=== PATIENT | male | born 1955 | race Caucasian/White ===

== ENCOUNTER 2017-04-11 13:38 | Emergency (ER) | payer MEDICARE, MEDICAID ==
[2016-08-17 15:12] VITALS: BMI 22.4
[~2017-04-11 13:38] MED LIST: ATIVAN0.5 MG PO; ATROVENT 0.02%2.5 ML UPD; BACLOFEN10 MG PO; BROVANA15 MCG/2 M INH; BYSTOLIC2.5 MG PO; CARAFATE1 G PO; COREG 3.1253.125 MG PO; CYCLOBENZAPRINE10 MG PO; DALIRESP500 MCG PO; DULCOLAX5 MG PO; FLORASTOR250 MG PO; GABAPENTIN100 MG PO; GAS-X80 MG PO; LANOXIN250 MCG PO; LASIX20 MG PO; LASIX40 MG PO; LEVAQUIN500 MG PO; LIPITOR10 MG PO; LISINOPRIL5 MG PO; MEDROL DOSE PACK4 MG PO; MELATONIN 3 MG1 TAB PO; MUCINEX600 MG PO; MUCUS RELIEF400 MG PO; MULTI-DAY VITAM1 TAB PO; PEPCID40 MG PO; PERFOROMIS20 MCG/21 INH; PREDNISONE20 MG PO; PREPARATION H S48 EA RC; PROTONIX40 MG PO; PULMICORT0.5 MG/21 INH; RYTHMOL225 MG PO; SINGULAIR10 MG PO; TESSALON PERLE100 MG PO; VENTOLIN HFA18 GM INH; ZITHROMAX250 MG PO; ZOCOR20 MG PO
[2017-04-11 14:52] LABS: ALBUMIN 3.6 g/dL (3.4-5.0); ALKALINE PHOSPHATASE 78 U/L (46-116); ALT (SGPT) 24 U/L (10-68); BILIRUBIN - TOTAL 0.39 mg/dL (0.2-1.3); CALC OSMOLALITY 274 mosm/kg (275-300); CALCIUM 8.8 mg/dL (8.5-10.1); CARBON DIOXIDE 37.4 mmol/L (21.0-32.0); CHLORIDE - SERUM 95 mmol/L (98-107); GLUCOSE 130 mg/dL (74-106); POTASSIUM - SERUM 4.5 mmol/L (3.5-5.1); PROTEIN - SERUM 6.3 g/dL (6.4-8.2); SODIUM 136 mmol/L (136-145); UREA NITROGEN 14 mg/dL (7-18); eGFR NON AFRICAN AMERICAN 81 mL/min (90-120)
[2017-04-11 15:00] LABS: CREATINE KINASE 48 UL (21-232); PRO BNP 1254 pg/mL (0-125)
[2017-04-11 15:01] LABS: TROPONIN-I < 0.017 ng/mL (0.000-0.060)
[2017-04-11 15:28] LABS: HEMATOCRIT 41.9 % (42.0-54.0); HEMOGLOBIN 14.3 g/dL (13.5-17.5); LYMPHOCYTES 12.6 % (15-50); MCHC 34.1 g/dL (31.0-37.0); MCV 93.7 fL (80.0-100.0); MEAN PLATELET VOLUME 10.5 fL (7.4-10.4); NEUTROPHILS 76.2 % (40-80); PLATELET COUNT 172 10x3/uL (130-400); RBC 4.47 10x6/uL (4.20-6.10); RDW 13.4 % (11.5-14.5); WBC 10.5 10x3/uL (4.8-10.8)
== END 2017-04-11 18:23 | disposition home or self-care (01) ==
LOC: D.ER 13:38
PROVIDERS: Emergency Medicine
DX: I47.1 Supraventricular tachycardia (principal); J44.1 Chronic obstructive pulmonary disease with (acute) exacerbation; Z87.891 Personal history of nicotine dependence; R94.31 Abnormal electrocardiogram [ECG] [EKG]

== ENCOUNTER 2018-07-18 10:26 | Emergency (ER) | payer MEDICARE, MEDICAID ==
[~2018-07-18] VITALS: Ht 175.3 cm; Wt 72.7 kg
[2018-07-18 10:28] VITALS: Ht 175.3 cm; Wt 72.7 kg
[2018-07-18] MEDS ORDERED: BENTYL 20 MG TA20 MG PO (13:15)
[2018-07-18] MEDS ORDERED: MIRALAX17 GM PO (13:15)
[2018-07-18] MEDS ORDERED: ROBAXIN500 MG PO (13:20)
[2018-07-18 15:11] VITALS: BP 141/87
== END 2018-07-18 15:12 | disposition home or self-care (01) ==
LOC: D.ER 10:26
DX: K59.00 Constipation, unspecified (principal); R14.0 Abdominal distension (gaseous); M62.838 Other muscle spasm; I11.0 Hypertensive heart disease with heart failure; I50.9 Heart failure, unspecified; J44.9 Chronic obstructive pulmonary disease, unspecified

== ENCOUNTER 2018-11-26 15:34 | Inpatient (IN) | payer MEDICARE, MEDICAID ==
[~2018-11-26] VITALS: Ht 175.3 cm; Wt 60.0 kg
[~2018-11-26 15:34] MED LIST changes: -ATIVAN0.5 MG PO; +ATIVAN1 MG PO; +BENTYL 20 MG TA20 MG PO; -GAS-X80 MG PO; +LANOXIN125 MCG PO; +MIRALAX17 GM PO; +MUCUS RELIEF PO; -MUCUS RELIEF400 MG PO; +MYLICON PO; +PROTONIX20 MG PO; -PROTONIX40 MG PO; +ROBAXIN500 MG PO
[2018-11-26 16:36] LABS: BASOPHILS 0.1 % (0-2); EOSINOPHILS 0.1 % (0-7); HEMATOCRIT 41.2 % (42.0-54.0); IMMATURE GRANULOCYTES 0.6 % (0-5); LYMPHOCYTES 4.5 % (15-50); MCH 30.7 pg (26.0-34.0); MCHC 31.6 g/dL (31.0-37.0); MCV 97.2 fL (80.0-100.0); MEAN PLATELET VOLUME 9.7 fL (7.4-10.4); MONOCYTES 1.9 % (2-11); NEUTROPHILS 92.8 % (40-80); PLATELET COUNT 281 10x3/uL (130-400); RBC 4.24 10x6/uL (4.20-6.10); RDW 12.7 % (11.5-14.5); WBC 19.7 10x3/uL (4.8-10.8)
--- NOTE | 2018-11-26 17:00 | NUR ---
PATIENT GIVEN A WARM BLANKET AND HOB ADJUSTED FOR COMFORT. HE IS AWAKE AND ALERT. COLOR IS WNL. HE IS ON BIPAP. NO OTHER NEEDS NOTED. UPDATED ON PLAN OF CARE AND DELAYS IN CARE. WILL CONTINUE TO MONITOR.
[2018-11-26 17:16] LABS: ALBUMIN 3.1 g/dL (3.4-5.0); ALKALINE PHOSPHATASE 117 U/L (46-116); ALT (SGPT) 28 U/L (10-68); BILIRUBIN - TOTAL 0.29 mg/dL (0.2-1.3); CALC OSMOLALITY 269 mosm/kg (275-300); CALCIUM 8.9 mg/dL (8.5-10.1); CHLORIDE - SERUM 90 mmol/L (98-107); CKMB 1.1 U/L (0.0-3.6); CREATININE - SERUM 0.8 mg/dL (0.6-1.3); GLUCOSE 129 mg/dL (74-106); PRO BNP 732 pg/mL (0-125); PROTEIN - SERUM 6.5 g/dL (6.4-8.2); SODIUM 133 mmol/L (136-145); TROPONIN-I < 0.017 ng/mL (0.000-0.060); UREA NITROGEN 18 mg/dL (7-18); eGFR NON AFRICAN AMERICAN > 90 mL/min (90-120)
[2018-11-26 17:45] LABS: CARBON DIOXIDE 43.8 mmol/L (21.0-32.0); POTASSIUM - SERUM 6.2 mmol/L (3.5-5.1)
[2018-11-26 18:25] VITALS: BP 108/56
--- NOTE | 2018-11-26 18:42 | NUR ---
PATIENT AWAKE AND ALERT. ON BIPAP. FAMILY AT BEDSIDE. COLOR WNL FOR RACE. NO NEEDS NOTED. WILL CONTINUE TO MONITOR.
[2018-11-26 20:00] VITALS: BP 97/41
--- NOTE | 2018-11-26 21:32 | NUR ---
ADMIT TO ROOM 2124 FROM ER VIA STRETCHER. ACCOMPANIED BY SPOUSE. SETTLED INTO ROOM. ADMISSION HISTORY AND ASSESSMENT INITIATED. HOME MEDS REVIEWED. PLAN OF CARE INITIATED. RT IN ROOM AND PT IS ON BIPAP.
[2018-11-26 23:50] VITALS: BP 98/61
--- NOTE | 2018-11-27 02:14 | NUR ---
I have reviewed this patient and I concur with the Shift Assessment completed by the Licensed Practical Nurse today this shift.
[2018-11-27 03:45] VITALS: BP 100/62
--- NOTE | 2018-11-27 04:41 | NUR ---
PT WILL NOT KEEP HIS BIPAP ON. HE HAS STRIPPED IT OFF, TAKEN OFF HIS CLOTHES AND WAS WALKING AROUND ROOM YELLING "HELP ME". STAFF RESITUATED PT AND WITHIN A SHORT PERIOD OF TIME, HE RESUMMED YELLING OUT. STAFF ENTERED ROOM AND FOUND HIM SITTING ON SIDE OF BED WITH BIPAP OFF, REFUSING TO PUT IT BACK ON. PATIENT SAYING THE BUILDING HAS NOTHING BUT PEOPLE IN IT AND THE APOCALYPSE IS HAPPENING NOW. CALL TO RT WHO WILL COME UP AND ASSESS PATIENT AND TRY TO CONVINCE PATIENT TO WEAR HIS BIPAP. RT X 2 NOW IN ROOM.
--- NOTE | 2018-11-27 05:12 | NUR ---
PT AGITATED, RT GOT HIM TO PUT HIS BIPAP BACK ON. HE REFUSED ALL SCHEDULED MEDS AT THIS TIME. LAYING IN BED. WILL MONITOR.
[2018-11-27 06:29] LABS: BASOPHILS 0 % (0-2); EOSINOPHILS 0 % (0-7); HEMATOCRIT 37.8 % (42.0-54.0); IMMATURE GRANULOCYTES 0.3 % (0-5); LYMPHOCYTES 2.4 % (15-50); MCH 30.6 pg (26.0-34.0); MCHC 31.7 g/dL (31.0-37.0); MCV 96.4 fL (80.0-100.0); MEAN PLATELET VOLUME 9.7 fL (7.4-10.4); NEUTROPHILS 95.3 % (40-80); PLATELET COUNT 263 10x3/uL (130-400); RBC 3.92 10x6/uL (4.20-6.10); RDW 12.6 % (11.5-14.5)
[2018-11-27 07:06] LABS: ALBUMIN 2.6 g/dL (3.4-5.0); ALKALINE PHOSPHATASE 99 U/L (46-116); ALT (SGPT) 22 U/L (10-68); BILIRUBIN - TOTAL 0.23 mg/dL (0.2-1.3); CALC OSMOLALITY 271 mosm/kg (275-300); CALCIUM 9.4 mg/dL (8.5-10.1); CHLORIDE - SERUM 91 mmol/L (98-107); CKMB 0.5 U/L (0.0-3.6); CREATINE KINASE 20 UL (21-232); CREATININE - SERUM 0.8 mg/dL (0.6-1.3); GLUCOSE 158 mg/dL (74-106); POTASSIUM - SERUM 5.9 mmol/L (3.5-5.1); PROTEIN - SERUM 6.5 g/dL (6.4-8.2); SODIUM 133 mmol/L (136-145); TROPONIN-I < 0.017 ng/mL (0.000-0.060); UREA NITROGEN 22 mg/dL (7-18); eGFR NON AFRICAN AMERICAN > 90 mL/min (90-120)
--- NOTE | 2018-11-27 07:15 | NUR ---
PATIENT LAYING IN BED ON RTSIDE WITH EYES CLOSED AND BREATHING EVENLY. BIPAP IN PLACE. VSS. WILL CONTINUE WITH PLAN OF CARE. SR UP X 2 BED IN LOW POSITION AND CALL LIGHT IN REACH.
[2018-11-27 07:57] VITALS: BP 100/62; BMI 21.7
[2018-11-27 08:03] VITALS: BP 95/48
[2018-11-27 08:05] LABS: CARBON DIOXIDE 42.5 mmol/L (21.0-32.0)
[2018-11-27 12:01] VITALS: BP 98/33
[2018-11-27 12:26] VITALS: Ht 175.3 cm; Wt 60.0 kg
[2018-11-27] MEDS ORDERED: FLUTICASONE PRO16 GM NASAL (15:06)
[2018-11-27] MEDS ORDERED: ALBUTEROL2.5 MG/3 M INH ×2 (15:07→15:08)
[2018-11-27] MEDS ORDERED: BUSPAR10 MG PO (15:09)
[2018-11-27] MEDS ORDERED: ALDACTONE25 MG PO (15:10)
[2018-11-27] MEDS ORDERED: PREDNISONE20 MG PO (15:11)
[2018-11-27] MEDS ORDERED: POTASSIUM CHLO10 ME1 PO (15:11)
[2018-11-27] MEDS ORDERED: ZANAFLEX2 M1 PO (15:14)
[2018-11-27] MEDS ORDERED: ULTRAM50 MG PO (15:16)
[2018-11-27] MEDS ORDERED: ACETAMINOPHEN325 MG PO (15:17)
[2018-11-27] MEDS ORDERED: CARAFATE1 G/10 ML PO (15:17)
[2018-11-27] MEDS ORDERED: ZOFRAN4 MG PO (15:18)
[2018-11-27] MEDS ORDERED: MYLANTA PO (15:20)
[2018-11-27] MEDS ORDERED: ANUSOL SUPP1 SUPP RC (15:23)
--- NOTE | 2018-11-27 15:30 | NUR ---
PATIENT LAYING IN BED WATCHING TV. BIPAP IN PLACE. PATIENT IS STABLE UNCHANGED. PATIENT DENIES ANY NEEDS OR PAIN. WILL CONTINUE TO MONITOR, SR UP X 2 BED IN LOW POSTION AND CALL LIGHT REACH.
[2018-11-27 15:40] VITALS: BP 92/54
--- NOTE | 2018-11-27 16:11 | MORECARE ---
CASE MANAGEMENT DISCHARGE SUMMARY PATIENT: TACHO WHITT UNIT: [id number] ADM DATE: 11/26/18 AGE: 63 : 57 SEX: M ROOM/BED: D.2124 AUTHOR: ANNELIESE,DOC PHYSICIAN: REFERRING PHYSICIAN: JOSE CARLOS SAM MD DATE OF SERVICE: 11/27/18 Discharge Plan Patient Name: TACHO WHITT Facility: [facility]:[place] : 1955 Planned Disposition: Nursing Facility [facility] Cert Anticipated Discharge Date: Discharge Date: Expected LOS: Initial Reviewer: [id number] Initial Review Date: 11/27/2018 Generated: 11/27/18 5:11 pm DCPIA - Discharge Planning Initial Assessment Updated by [email or web address]: Rufino Lopez on 11/27/18 4:10 pm * Is the patient Alert and Oriented? Yes * How many steps to enter\exit or inside your home? NONE * PCP DR. MEDINA * [facility] * Preadmission Environment [facility] * Facility Name [facility] * ADLs Partial Dependent * Partial ADLs (Assistance needed) Bathing Medication Management * Equipment CPAP Nebulizer Oxygen Wheelchair * Other Equipment HOME AND PORTABLE OXYGEN CPAP - PT NOT USING DUE TO IT BEING DIRTY ALL EQUIPMENT PROVIDED BY MEDICAL FACILITY * List name and contact numbers for known caregivers / representatives who currently or will assist patient after discharge: TOSHA WHITT, SPOUSE, * Verbal permission to speak to the caregivers and representatives has been obtained from the patient. N/A * Community resources currently utilized None * Please name any agencies selected above. NONE * Additional services required to return to the preadmission environment? No * Can the patient safely return to the preadmission environment? Yes * Has this patient been hospitalized within the prior 30 days at any hospital? No External Providers External Provider: [facility] Next Contact Date: 11/27/2018 Service Request Date: Service Type: Resolution: Reviewer: Comments: Coverage Notice Reviewer: [id number] Shaye Lopez Notice Issued Date-Time: 11/27/2018 14:45 Notice Type: Patient Choice Letter Notice Delivered To: Patient Relationship to Patient: Hiv Cts Specialist Name: Delivery Method: HAND - Hand Delivered Ct Days: Prior Verbal Notification: Recipient Understood Notice: Yes Recipient Signature: Yes Med Rec Note Co-signed by Attending: Coverage Notice Comment: LTC CAROL RETURN Patient Name: TACHO WHITT Page [id number] at 1611 All edits/amendments must be made on the electronic document DICTATION DATE: 11/27/18 161 DEMOLITION WORKER: LAURA 11/27/18 1610 RPT#: [id number] DC DATE: STATUS: ADM IN [facility] [address] [place] [address] END OF REPORT
--- NOTE | 2018-11-27 16:21 | MORECARE ---
CASE MANAGEMENT DISCHARGE SUMMARY PATIENT: TACHO WHITT UNIT: [id number] ADM DATE: 11/26/18 AGE: 63 : 57 SEX: M ROOM/BED: D.6709 AUTHOR: ANNELIESE,DOC PHYSICIAN: REFERRING PHYSICIAN: JOSE CARLOS SAM MD DATE OF SERVICE: 11/27/18 Discharge Plan Patient Name: TACHO WHITT Facility: [facility]:[place] : 1955 Planned Disposition: Nursing Facility [facility] Cert Anticipated Discharge Date: Discharge Date: Expected LOS: Initial Reviewer: [id number] Initial Review Date: 11/27/2018 Generated: 11/27/18 5:20 pm Comments DCP- Discharge Planning Updated by [id number]: Rufino Lopez on 11/27/18 3:[address] Patient Name: TACHO WHITT Encounter No: [id number] : 1955 Primary Insurance: [facility] MEDICARE HMO or PPO Anticipated DC Date: Planned Disposition: Nursing Facility [facility] Cert External Planned Provider: [facility], LONG TERM CARE MEDICAID BED DISCHARGE PLANNING NOTE: CM MET WITH PT IN ROOM TO DISCUSS DISCHARGE PLANNING AND NEEDS. PT REPORTS LIVING AT [facility] FOR THE LAST TWO YEARS. PT REPORTS FEELING SAFE AND WILL BE RETURNING THERE AT DISCHARGE. CHOICE LISTING PROVIDED, PT SIGNED CONSENT FOR [facility]. PT REPORTS BEING OUT OF BE AND IN WHEELCHAIR AT THE ASSISTED. PT REPORTS HAVING OXYGEN, NEBULIZER, WHEELCHAIR AND CPAP AT THE FACILITY. PT HAS NOT BEEN USING HIS CPAP DUE TO IT BEING DIRTY. CM SPOKE TO [facility], , WHO ADVISED THAT THEY MAY RETURN PT TO SKILLED BED DEPENDING ON IF HE HAS THREE MIDNIGHTS IN INPATIENT BED AND IF HE HAS REMAINING SKILLED DAYS REMAINING. PT IS CURRENTLY IN [facility] BED. CM FAXED UPDATE TO [facility] AT [phone]. FOR DISCHARGE, FAX DISCHARGE INFORMATION TO [facility] AT [phone]. NURSE REPORT TO BE CALLED TO [facility] AT [phone]. [facility] TO ARRANGE VAN TRANSPORT. [place] MANAGEMENT DCPIA - Discharge Planning Initial Assessment Updated by [id number]: Rufino Lopez on 11/27/18 4:10 pm * Is the patient Alert and Oriented? Yes * How many steps to enter\exit or inside your home? NONE * PCP DR. MEDINA * [facility] * Preadmission Environment [facility] * Facility Name [facility] * ADLs Partial Dependent * Partial ADLs (Assistance needed) Bathing Medication Management * Equipment CPAP Nebulizer Oxygen Wheelchair * Other Equipment HOME AND PORTABLE OXYGEN CPAP - PT NOT USING DUE TO IT BEING DIRTY ALL EQUIPMENT PROVIDED BY MEDICAL FACILITY * List name and contact numbers for known caregivers / representatives who currently or will assist patient after discharge: TOSHA WHITT, SPOUSE, * Verbal permission to speak to the caregivers and representatives has been obtained from the patient. N/A * Community resources currently utilized None * Please name any agencies selected above. NONE * Additional services required to return to the preadmission environment? No * Can the patient safely return to the preadmission environment? Yes * Has this patient been hospitalized within the prior 30 days at any hospital? No Coverage Notice Reviewer: [id number] - Rufino Lopez Notice Issued Date-Time: 11/27/2018 14:45 Notice Type: Patient Choice Letter Notice Delivered To: Patient Relationship to Patient: Supervisor Instrument Mechanics Name: Delivery Method: HAND - Hand Delivered Ct Days: Prior Verbal Notification: Recipient Understood Notice: Yes Recipient Signature: Yes Med Rec Note Co-signed by Attending: Coverage Notice Comment: [facility] RETURN Last DP export: 11/27/18 3:11 pm Patient Name: TACHO WHITT Page [phone] at 1621 All edits/amendments must be made on the electronic document DICTATION DATE: 11/27/18 162 ENDOSCOPY REGISTERED NURSE: LAURA 11/27/18 162 RPT#: [id number] DC DATE: STATUS: ADM IN [facility] [address] [place] [address] END OF REPORT
[2018-11-27 18:23] LABS: APPEARANCE CLEAR (CLEAR); BILIRUBIN NEGATIVE (NEGATIVE); COLOR YELLOW (YELLOW); GLUCOSE NEGATIVE (NEGATIVE); KETONE SMALL mg/dL (NEGATIVE); NITRITE NEGATIVE (NEGATIVE); PROTEIN NEGATIVE (NEGATIVE); UROBILINOGEN NORMAL (NORMAL)
--- NOTE | 2018-11-27 19:46 | NUR ---
RESUMED CARE OF PT, LYING IN BED RESPIRATIONS EVEN AND UNLABORED ON BIPAP. LEFT WRIST SALINE LOCKED. CALL LIGHT IN REACH. SEE NURSE ASSESSMENT.
[2018-11-27 20:00] VITALS: BP 112/57
[2018-11-28] VITALS: BP 103/61; BP 67/58
[2018-11-28 04:00] VITALS: BP 126/70
[2018-11-28 06:00] LABS: BASOPHILS 0 % (0-2); EOSINOPHILS 0 % (0-7); HEMATOCRIT 37.4 % (42.0-54.0); HEMOGLOBIN 12.2 g/dL (13.5-17.5); IMMATURE GRANULOCYTES 0.4 % (0-5); LYMPHOCYTES 3.5 % (15-50); MCH 30.3 pg (26.0-34.0); MCHC 32.6 g/dL (31.0-37.0); MEAN PLATELET VOLUME 9.9 fL (7.4-10.4); MONOCYTES 2.2 % (2-11); NEUTROPHILS 93.9 % (40-80); PLATELET COUNT 285 10x3/uL (130-400); RBC 4.02 10x6/uL (4.20-6.10); RDW 12.5 % (11.5-14.5); WBC 16.7 10x3/uL (4.8-10.8)
[2018-11-28 06:14] LABS: CALC OSMOLALITY 277 mosm/kg (275-300); CALCIUM 9.1 mg/dL (8.5-10.1); CHLORIDE - SERUM 90 mmol/L (98-107); CREATININE - SERUM 0.9 mg/dL (0.6-1.3); GLUCOSE 174 mg/dL (74-106); SODIUM 135 mmol/L (136-145); UREA NITROGEN 24 mg/dL (7-18); eGFR NON AFRICAN AMERICAN > 90 mL/min (90-120)
[2018-11-28 06:54] LABS: POTASSIUM - SERUM 3.6 mmol/L (3.5-5.1)
[2018-11-28 06:56] LABS: CARBON DIOXIDE 40.5 mmol/L (21.0-32.0)
--- NOTE | 2018-11-28 07:00 | NUR ---
PT IN BED, WEARING BIPAP AT THIS TIME. SWIMMING COACH OR INSTRUCTOR AT BEDSIDE CLEANING PT'S ROOM. RT WRIST IV SL. CALL LIGHT IN REACH, NAD NOTED, WILL CONTINUE PLAN OF CARE.
--- NOTE | 2018-11-28 09:28 | NUR ---
PLACED PT BACK ON BIPAP, PT STATES THAT SOMETHING WAS WRONG WITH HIS BIPAP BECAUSE HE WAS NOT GETTING ANY AIR FROM IT. CHECKED BIPAP AND NOTHING WRONG WITH IT. PT DENIES ANY OTHER NEEDS AT THIS TIME. CALL LIGHT IN REACH, NAD NOTED, WILL CONTINUE TO MONITOR.
[2018-11-28 09:57] VITALS: BP 135/65
--- NOTE | 2018-11-28 14:19 | NUR ---
PT RESTING COMFORTABLY, USING BIPAP. DENIES ANY NEEDS AT THIS TIME. CALL LIGHT IN REACH, NAD NOTED, WILL CONTINUE TO MONITOR.
--- NOTE | 2018-11-28 16:42 | NUR ---
PT SCREAMING OUT HELP, WENT TO SEE WHAT PT NEEDED, PT WANTS TO COME OFF BIPAP. TOOK PT OFF BIPAP AND PLACED ON 4L NC. PT DENIES ANY OTHER NEEDS AT THIS TIME. CALL LIGHT IN REACH, HERBIE NOTED.
[2018-11-28 18:48] VITALS: BP 130/78
--- NOTE | 2018-11-28 19:34 | NUR ---
PT LAYING ON RIGHT SIDE. AROUSES TO NURSE ENTERING ROOM. PT HAS DINNER TRAY AT BEDSIDE. DECLINES NURSE HEATING IT UP OR TAKING IT AWAY. TOLD PT TO CALL IF NEED IT HEATED. PT VERBALIZED UNDERSTANDING. PT SET UP ON SIDE OF BED WITHOUT ASSIST FOR DYSPNEA. 4L O2 NC. BIPAP AT BEDSIDE ON STANDBYE. PT STATES LIPS ARE DRY. WILL GET PT MOUTH MOISTURIZER. PT DENIES ANY OTHER NEEDS. NO S/S OF DISTRESS. BEDLOW AND CALL LIGHT IN REACH. NAME AND DATE PLACED ON BOARD. WILL CPOC
[2018-11-28 20:00] VITALS: BP 128/79
--- NOTE | 2018-11-28 20:10 | NUR ---
PT HEARTRATE [address] LOERA NOW
--- NOTE | 2018-11-28 20:34 | NUR ---
PAGED FELIPA JACKSON. STILL NO CALL BACK FROM
--- NOTE | 2018-11-28 21:14 | NUR ---
SPOKE WITH DR LOERA. STATED TO RESTART HOME MEDS. PLACED TELEMETRY ON PT AND RESTARTED HOME MEDS. SHE STATED TO GIVE DOSE OF DIGOXIN AND COREG TONIGHT. PLACED MEDICATIONS INTO EMAR
--- NOTE | 2018-11-29 01:43 | NUR ---
FLUSHED IV AND S/L RETAPED AND TOOK OFF DRSG SKIN TEAR UNDER DRSG. NOT OPEN, SCAB OVER IT. PT LAYING ON RIGHT SIDE. 4L O2 NC. PT BEDLOW AND CALL LIGHT IN REACH. PT WILL CALL FOR ASSIST WHEN NEEDED. WILL CPOC
[2018-11-29 04:00] VITALS: BP 83/53
--- NOTE | 2018-11-29 04:56 | NUR ---
PT ZOSYN STARTED. PT INDEPENDENT. CAN MOVE WITHOUT ASSIST. 4L O2 NC. PT DID NOT WEAR BIPAP THROUGHOUT NIGHT. PT HAS NO S/S OF DISTRESS. BEDLOW AND CALL LIGHT INREACH. WILL CPOC
[2018-11-29 06:18] LABS: BASOPHILS 0.1 % (0-2); EOSINOPHILS 0 % (0-7); HEMATOCRIT 37.1 % (42.0-54.0); HEMOGLOBIN 12.2 g/dL (13.5-17.5); IMMATURE GRANULOCYTES 0.7 % (0-5); MCH 30.3 pg (26.0-34.0); MCHC 32.9 g/dL (31.0-37.0); MCV 92.3 fL (80.0-100.0); NEUTROPHILS 91.2 % (40-80); PLATELET COUNT 296 10x3/uL (130-400); RBC 4.02 10x6/uL (4.20-6.10); RDW 12.8 % (11.5-14.5); WBC 16.9 10x3/uL (4.8-10.8)
--- NOTE | 2018-11-29 06:21 | NUR ---
PT RESTING IN BED. PT WILL CALL FOR ASSIST WHEN NEEDED. PT HAS NO S/S OF DISTRESS. BEDLOW AND CALL LIGHT IN REACH. 4L 02 NC. WILL CPOC
[2018-11-29 06:30] LABS: CALCIUM 8.7 mg/dL (8.5-10.1)
[2018-11-29 06:32] LABS: CREATININE - SERUM 1.2 mg/dL (0.6-1.3)
--- NOTE | 2018-11-29 08:05 | NUR ---
CALLED PHARMACY AND ASKED FOR THEM TO BRING BUSPAR AND THEY STATED THEY WOULD.
[2018-11-29 09:34] VITALS: BP 91/47
--- NOTE | 2018-11-29 09:34 | NUR ---
CALLED AND SPOKE WITH PHARMACY AND ASKED FOR THEM TO PLEASE BRING BUSPAR. THEY STATED THEY WILL BRING IT.
--- NOTE | 2018-11-29 10:43 | NUR ---
SPOKE WITH [employer] ABOUT MENDOZA. HE STATES HE WILL GO DOWN AND LOOK AND BRING IT UP.
[2018-11-29 12:13] VITALS: BP 90/54
--- NOTE | 2018-11-29 12:30 | NUR ---
CALLED AND SPOKE WITH DEEP FROM PHARMACY ABOUT BRINGING BUSPAR AND HE STATES HE WILL GET IT.
--- NOTE | 2018-11-29 15:07 | NUR ---
I have reviewed this patient and I concur with the Shift Assessment completed by the Licensed Practical Nurse today this shift.
[2018-11-29 17:06] VITALS: BP 98/51
[2018-11-29 20:00] VITALS: BP 97/59
--- NOTE | 2018-11-29 21:08 | NUR ---
HS MEDS GIVEN WITH FRESH ICE WATER. PT DENIES PAIN OR NEEDS, BED LOW, CL IN REACH.
[2018-11-30] VITALS: BP 98/60
[2018-11-30 04:00] VITALS: BP 97/58
[2018-11-30 06:20] LABS: ANION GAP 13.5 mmol/L (8-16); CALCIUM 8.8 mg/dL (8.5-10.1); CARBON DIOXIDE 29.7 mmol/L (21.0-32.0); CREATININE - SERUM 1.3 mg/dL (0.6-1.3)
[2018-11-30 06:26] LABS: BASOPHILS 0.2 % (0-2); EOSINOPHILS 0 % (0-7); HEMATOCRIT 34.4 % (42.0-54.0); HEMOGLOBIN 11.5 g/dL (13.5-17.5); IMMATURE GRANULOCYTES 0.8 % (0-5); LYMPHOCYTES 4.6 % (15-50); MCH 30.4 pg (26.0-34.0); MCHC 33.4 g/dL (31.0-37.0); MEAN PLATELET VOLUME 9.9 fL (7.4-10.4); MONOCYTES 2.6 % (2-11); NEUTROPHILS 91.8 % (40-80); PLATELET COUNT 269 10x3/uL (130-400); RBC 3.78 10x6/uL (4.20-6.10); RDW 12.7 % (11.5-14.5)
[2018-11-30 06:40] LABS: WBC 12.6 10x3/uL (4.8-10.8)
[2018-11-30 06:45] LABS: POTASSIUM - SERUM 4.2 mmol/L (3.5-5.1)
--- NOTE | 2018-11-30 07:45 | NUR ---
PT LYING IN BED. EYES CLOSED. CHEST RISING AND FALLING. BED LOW. CL IN REACH.
[2018-11-30 08:03] VITALS: BP 125/59
[2018-11-30 11:53] VITALS: BP 121/65
--- NOTE | 2018-11-30 14:49 | NUR ---
I have reviewed this patient and I concur with the Shift Assessment completed by the Licensed Practical Nurse today this shift.
[2018-11-30 16:01] VITALS: BP 128/61
--- NOTE | 2018-11-30 19:05 | NUR ---
PT WANTING SOMETHING FOR HEADACHE. PAGED FELIPA OJEDA.
--- NOTE | 2018-11-30 19:20 | NUR ---
ANSWERED CL. PT C/O OF SOB, ASKING FOR UPDRAFT. CALL OUT TO RT, SPOKE WITH BUNNY. BUNNY AT BED SIDE ADMINISTERING UPDRAFT.
[2018-11-30 20:00] VITALS: BP 90/50
[2018-12-01] VITALS (7 sets, daily range): BP systolic 82–136; BP diastolic 43–68
--- NOTE | 2018-12-01 01:34 | NUR ---
RT AT BED SIDE, PT PLACED ON BI PAP.
[2018-12-01 06:08] LABS: BASOPHILS 0.1 % (0-2); EOSINOPHILS 0 % (0-7); HEMOGLOBIN 12.4 g/dL (13.5-17.5); IMMATURE GRANULOCYTES 1.8 % (0-5); LYMPHOCYTES 4.1 % (15-50); MCHC 33.5 g/dL (31.0-37.0); MCV 89.6 fL (80.0-100.0); MONOCYTES 2.9 % (2-11); NEUTROPHILS 91.1 % (40-80); PLATELET COUNT 274 10x3/uL (130-400); RBC 4.13 10x6/uL (4.20-6.10); RDW 12.6 % (11.5-14.5); WBC 15.5 10x3/uL (4.8-10.8)
[2018-12-01 06:18] LABS: ANION GAP 9.6 mmol/L (8-16); CALCIUM 8.7 mg/dL (8.5-10.1); CARBON DIOXIDE 31.9 mmol/L (21.0-32.0); CREATININE - SERUM 1.1 mg/dL (0.6-1.3)
[2018-12-01 06:20] LABS: POTASSIUM - SERUM 3.5 mmol/L (3.5-5.1)
--- NOTE | 2018-12-01 07:21 | NUR ---
REPORT RECEIVED. WILL CONTINUE WITH POC. PT CURRENTLY LYING ON RIGHT SIDE. CALL LIGHT W/I REACH. PT IS AAO AND UP WITH ASSIST. RR EVEN AND UNLABORED ON 3L 02. R.FOR PIV IS SALINE LOCKED. PT DENIES ANY NEEDS AT THIS TIME. NO S/S OF DISTRESS NOTED. WILL CTM.
--- NOTE | 2018-12-01 09:55 | MORECARE ---
CASE MANAGEMENT DISCHARGE SUMMARY PATIENT: TACHO WHITT UNIT: [id number] ADM DATE: 11/26/18 AGE: 63 : 57 SEX: M ROOM/BED: D.5094 AUTHOR: TENZIN COY PHYSICIAN: REFERRING PHYSICIAN: JOSE CARLOS SAM MD DATE OF SERVICE: 12/01/18 Discharge Plan Patient Name: TACHO WHITT Facility: [facility]:[place] : 1955 Planned Disposition: Nursing Facility [facility] Cert Anticipated Discharge Date: Discharge Date: Expected LOS: Initial Reviewer: [id number] Initial Review Date: 11/27/2018 Generated: 12/01/18 10:55 am Comments DCP- Discharge Planning Updated by [id number]: Rufino Lopez on 12/01/18 8:[address] Patient Name: TACHO WHITT Encounter No: [id number] : 1955 Primary Insurance: [facility] MEDICARE HMO or PPO Anticipated DC Date: Planned Disposition: Nursing Facility [facility] Cert External Planned Provider:[facility], MEDICARE SKILLED BED DISCHARGE PLANNING NOTE: CM SPOKE TO [facility], , WHO ADVISED THAT THEY PLAN FOR PT TO RETURN TO SKILLED BED. PT IS CURRENTLY IN [facility] SH[facility]ING COVERER [facility]ARE BED. CM FAXED UPDATE TO [facility] AT [phone]. FOR DISCHARGE, FAX DISCHARGE INFORMATION TO [facility] AT [phone]. NURSE REPORT TO BE CALLED TO [facility] AT [phone]. [facility] TO ARRANGE VAN TRANSPORT. Rufino Lopez CASE MANAGEMENT DCP- Discharge Planning Updated by [id number]: Rufino Lopez on 11/27/18 3:[address] Patient Name: TACHO WHITT Encounter No: [id number] : 1955 Primary Insurance: [facility] MEDICARE HMO or PPO Anticipated DC Date: Planned Disposition: Nursing Facility [facility] Cert External Planned Provider: [facility] TERM CARE MEDICAID BED DISCHARGE PLANNING NOTE: CM MET WITH PT IN ROOM TO DISCUSS DISCHARGE PLANNING AND NEEDS. PT REPORTS LIVING AT [facility] FOR THE LAST TWO YEARS. PT REPORTS FEELING SAFE AND WILL BE RETURNING THERE AT DISCHARGE. CHOICE LISTING PROVIDED, PT SIGNED CONSENT FOR [facility]. PT REPORTS BEING OUT OF BE AND IN WHEELCHAIR AT THE CUSTODIAL. PT REPORTS HAVING OXYGEN, NEBULIZER, WHEELCHAIR AND CPAP AT THE FACILITY. PT HAS NOT BEEN USING HIS CPAP DUE TO IT BEING DIRTY. CM SPOKE TO [facility], , WHO ADVISED THAT THEY MAY RETURN PT TO SKILLED BED DEPENDING ON IF HE HAS THREE MIDNIGHTS IN INPATIENT BED AND IF HE HAS REMAINING SKILLED DAYS REMAINING. PT IS CURRENTLY IN [facility]OW SHADE RING COVERER CARE BED. CM FAXED UPDATE TO [facility] AT [phone]. FOR DISCHARGE, FAX DISCHARGE INFORMATION TO [facility] AT [phone]. NURSE REPORT TO BE CALLED TO [facility] AT [phone]. [facility] TO ARRANGE VAN TRANSPORT. Rufino Lopez, CASE MANAGEMENT DCPIA - Discharge Planning Initial Assessment Updated by [id number]: Rufino Lopez on 11/27/18 4:10 pm * Is the patient Alert and Oriented? Yes * How many steps to enter\exit or inside your home? NONE * PCP DR. MEDINA * [facility] * Preadmission Environment [facility] * Facility Name [facility] * ADLs Partial Dependent * Partial ADLs (Assistance needed) Bathing Medication Management * Equipment CPAP Nebulizer Oxygen Wheelchair * Other Equipment HOME AND PORTABLE OXYGEN CPAP - PT NOT USING DUE TO IT BEING DIRTY ALL EQUIPMENT PROVIDED BY MEDICAL FACILITY * List name and contact numbers for known caregivers / representatives who currently or will assist patient after discharge: TOSHA WHITT, SPOUSE, * Verbal permission to speak to the caregivers and representatives has been obtained from the patient. N/A * Community resources currently utilized None * Please name any agencies selected above. NONE * Additional services required to return to the preadmission environment? No * Can the patient safely return to the preadmission environment? Yes * Has this patient been hospitalized within the prior 30 days at any hospital? No Coverage Notice Reviewer: [id number] - Rufino Lopez Notice Issued Date-Time: 11/27/2018 14:45 Notice Type: Patient Choice Letter Notice Delivered To: Patient Relationship to Patient: Concrete Conveyor Operator Name: Delivery Method: HAND - Hand Delivered Ct Days: Prior Verbal Notification: Recipient Understood Notice: Yes Recipient Signature: Yes Med Rec Note Co-signed by Attending: Coverage Notice Comment: LTC CAROL RETURN Last DP export: 11/27/18 3:21 pm Patient Name: TACHO WHITT Page [id number] at 0955 All edits/amendments must be made on the electronic document DICTATION DATE: 12/01/18953 JEWEL BLOCKER AND SAWYER: LAURA 12/01/18953 RPT#: [id number] DC DATE: STATUS: ADM IN [facility] [address] [place] [address] END OF REPORT
--- NOTE | 2018-12-01 11:52 | NUR ---
PREVIOUS PIV INFILTRATED. REMOVED PIV WITH CATHETER TIP FULLY INTACT. INITIATED NEW PIV IN THE LEFT FOREARM 22GA X1 ATTEMPT. BEGAN INFUSION OF ABX. PT DENIES ANY NEEDS. WILL CTM.
--- NOTE | 2018-12-01 12:33 | NUR ---
I have reviewed this patient and I concur with the Shift Assessment completed by the Licensed Practical Nurse today this shift.
--- NOTE | 2018-12-01 16:48 | MORECARE ---
CASE MANAGEMENT DISCHARGE SUMMARY PATIENT: TACHO WHITT UNIT: [id number] ADM DATE: 11/26/18 AGE: 63 : 57 SEX: M ROOM/BED: D.0964 AUTHOR: ANNELIESE,DOC PHYSICIAN: REFERRING PHYSICIAN: JOSE CARLOS SAM MD DATE OF SERVICE: 12/01/18 Discharge Plan Patient Name: TACHO WHITT Facility: [facility]:[place] : 1955 Planned Disposition: Nursing Facility [facility] Cert Anticipated Discharge Date: 12/01/18 Discharge Date: Expected LOS: 5 Initial Reviewer: [id number] Initial Review Date: 11/27/2018 Generated: 12/01/18 5:48 pm Comments DCP- Discharge Planning Updated by [id number]: Rufino Lopez on 12/01/18 8:[address] Patient Name: TACHO WHITT Encounter No: [id number] : 1955 [place] [facility] [place] Anticipated DC Date: Planned Disposition: Nursing Facility [facility] Cert External Planned Provider:[facility], MEDICARE SKILLED BED DISCHARGE PLANNING NOTE: CM SPOKE TO [facility], , WHO ADVISED THAT THEY PLAN FOR PT TO RETURN TO SKILLED BED. PT IS CURRENTLY IN [facility] BED. CM FAXED UPDATE TO [facility] AT [phone]. FOR DISCHARGE, FAX DISCHAR[facility] INFORMATION TO [facility] AT [phone]. NURSE REPORT TO BE CALLED TO [facility] AT [phone]. [facility] TO [facility]ANGE VAN TRANSPORT. Rufino Lopez, CASE MANAGEMENT DCP- Discharge Planning Updated by [id number]: Rufino Lopez on 11/27/18 3:[address] Patient Name: TACHO WHITT Encounter No: [id number] : 1955 [place] [facility] [place] Anticipated DC Date: Planned Disposition: Nursing Facility [facility] Cert External Planned Provider: [facility] TERM CARE MEDICAID BED DISCHARGE PLANNING NOTE: CM MET WITH PT IN ROOM TO DISCUSS DISCHARGE PLANNING AND NEEDS. PT REPORTS LIVING AT [facility] FOR THE LAST TWO YEARS. PT REPORTS FEELING SAFE AND WILL BE RETURNING THERE AT DISCHARGE. CHOICE LISTING PROVIDED, PT SIGNED [facility]. PT REPORTS BEING OUT OF BE AND IN WHEELCHAIR AT THE [facility]. PT REPORTS HAVING OXYGEN, NEBULIZER, WHEELCHAIR AND CPAP AT THE FACILITY. PT HAS NOT BEEN USING HIS CPAP DUE TO IT BEING DIRTY. CM SPOKE TO [facility], , WHO ADVISED THAT THEY MAY RETURN PT TO SKILLED BED DEPENDING ON IF HE HAS THREE MIDNIGHTS IN INPATIENT BED AND IF HE HAS REMAINING SKILLED DAYS REMAINING. PT IS CURRENTLY IN [facility] DRIVER [facility]ARE BED. CM FAXED UPDATE TO [facility] AT [phone]. FOR DISCHARGE, FAX DISCHARGE INFORMATION TO [facility] AT [phone]. NURSE REPORT TO BE CALLED TO [facility] AT [phone]. [facility] TO [facility]ANGE VAN TRANSPORT. Rufino Lopez, CASE MANAGEMENT DCPIA - Discharge Planning Initial Assessment Updated by [id number]: Rufino Lopez on 11/27/18 4:10 pm * Is the patient Alert and Oriented? Yes * How many steps to enter\exit or inside your home? NONE * PCP DR. MEDINA * [facility] * Preadmission Environment [employer] [facility] * Facility Name [facility] * ADLs Partial Dependent * Partial ADLs (Assistance needed) Bathing Medication Management * Equipment CPAP Nebulizer Oxygen Wheelchair * Other Equipment HOME AND PORTABLE OXYGEN CPAP - PT NOT USING DUE TO IT BEING DIRTY ALL EQUIPMENT PROVIDED BY MEDICAL FACILITY * List name and contact numbers for known caregivers / representatives who currently or will assist patient after discharge: OTSHA WHITT, SPOUSE, * Verbal permission to speak to the caregivers and representatives has been obtained from the patient. N/A * Community resources currently utilized None * Please name any agencies selected above. NONE * Additional services required to return to the preadmission environment? No * Can the patient safely return to the preadmission environment? Yes * Has this patient been hospitalized within the prior 30 days at any hospital? No Coverage Notice Reviewer: [id number] - Rufino Lopez Notice Issued Date-Time: 11/27/2018 14:45 Notice Type: Patient Choice Letter Notice Delivered To: Patient Relationship to Patient: Baggage Clerk Name: Delivery Method: HAND - Hand Delivered Ct Days: Prior Verbal Notification: Recipient Understood Notice: Yes Recipient Signature: Yes Med Rec Note Co-signed by Attending: Coverage Notice Comment: LTC CAROL RETURN Reviewer: [id number] Shaye Lopez Notice Issued Date-Time: 12/01/2018 13:45 Notice Type: IM Discharge Notice Notice Delivered To: Patient Relationship to Patient: Baggage Clerk Name: Delivery Method: HAND - Hand Delivered Ct Days: Prior Verbal Notification: Recipient Understood Notice: Yes Recipient Signature: Yes Med Rec Note Co-signed by Attending: Coverage Notice Comment: Last DP export: 12/01/18 8:55 am Patient Name: TACHO WHITT Page 04438 at 1648 All edits/amendments must be made on the electronic document DICTATION DATE: 12/01/181646 CHILD CARE CENTER ADMINISTRATOR: LAURA 12/01/181646 RPT#: [id number] DC DATE: STATUS: ADM IN [facility] [address] [place] [address] END OF REPORT
--- NOTE | 2018-12-01 17:22 | MORECARE ---
CASE MANAGEMENT DISCHARGE SUMMARY PATIENT: TACHO WHITT UNIT: [id number] ADM DATE: 11/26/18 AGE: 63 : 57 SEX: M ROOM/BED: D.9614 AUTHOR: ANNELIESE,DOC PHYSICIAN: REFERRING PHYSICIAN: JOSE CARLOS SAM MD DATE OF SERVICE: 12/01/18 Discharge Plan Patient Name: TACHO WHITT Facility: [facility]:[place] : 1955 Planned Disposition: Nursing Facility [facility] Cert Anticipated Discharge Date: 12/01/18 Discharge Date: Expected LOS: 5 Initial Reviewer: [id number] Initial Review Date: 11/27/2018 Generated: 12/01/18 6:21 pm Comments DCP- Discharge Planning Updated by [id number]: Rufino Lopez on 12/01/18 4:[address] Patient Name: TACHO WHITT Encounter No: [id number] : 1955 Primary Insurance: [facility] [place] Anticipated DC Date: Planned Disposition: Nursing Facility [facility] Cert External Planned Provider:[facility] MEDICARE SKILLED BED DISCHARGE PLANNING NOTE: CM SPOKE TO [facility], , WHO ADVISED THAT THEY PLAN FOR PT TO RETURN TO SKILLED BED. PT IS CURRENTLY IN MEDICAL LAB DIRECTOR CARE BED. CM FAXED UPDATE TO [facility] AT [phone]. FOR DISCHARGE, FAX DISCHARGE INFORMATION TO [facility] AT [phone]. NURSE REPORT TO BE CALLED TO [facility] AT [phone]. [facility] TO ARRANGE VAN TRANSPORT. Rufino Lopez, CASE MANAGEMENT Appended by Rufino Lopez on 12/01/2018 17:16 ASSEMBLER FISHING FLOATS: CM SPOKE TO [facility], PT HAS BRAND NEW BIPAP AVAILABLE WITH NEW TUBING AND MASK AT FACILITY. PT HAS REFUSED TO WEAR IT IN THE FACILITY, BUT IT IS THERE AND AVAILABLE FOR PT'S USE. FOR DISCHARGE, FAX DISCHARGE INFORMATION TO [facility] AT [phone]. NURSE REPORT TO BE CALLED TO [facility] AT [phone]. [facility] TO ARRANGE VAN TRANSPORT. FROY Hill DCP- Discharge Planning Updated by [id number]: Rufino Lopez on 11/27/18 3:[address] Patient Name: TACHO WHITT Encounter No: [id number] : 1955 Primary Insurance: [facility] [place] or [place]PO Anticipated DC Date: Planned Disposition: Nursing Facility [facility] Cert External Planned Provider: [facility], LONG TERM CARE MEDICAID BED DISCHARGE PLANNING NOTE: CM MET WITH PT IN ROOM TO DISCUSS DISCHARGE PLANNING AND NEEDS. PT REPORTS LIVING AT [facility] FOR THE LAST TWO YEARS. PT REPORTS FEELING SAFE AND WILL BE RETURNING THERE AT DISCHARGE. CHOICE LISTING PROVIDED, PT SIGNED CONSENT FOR [facility]. PT REPORTS BEING OUT OF BE AND IN WHEELCHAIR AT THE CUSTODIAL. PT REPORTS HAVING OXYGEN, NEBULIZER, WHEELCHAIR AND CPAP AT THE FACILITY. PT HAS NOT BEEN USING HIS CPAP DUE TO IT BEING DIRTY. CM SPOKE TO [facility], , WHO ADVISED THAT THEY MAY RETURN PT TO SKILLED BED DEPENDING ON IF HE HAS THREE MIDNIGHTS IN INPATIENT BED AND IF HE HAS REMAINING SKILLED DAYS REMAINING. PT IS CURRENTLY IN RETIREMENT CARE BED. CM FAXED UPDATE TO [facility] AT [phone]. FOR DISCHARGE, FAX DISCHARGE INFORMATION TO [facility] AT [phone]. NURSE REPORT TO BE CALLED TO [facility] AT [phone]. [facility] TO ARRANGE VAN TRANSPORT. FROY Hill DCPIA - Discharge Planning Initial Assessment Updated by [id number]: Rufino Lopez on 11/27/18 4:10 pm * Is the patient Alert and Oriented? Yes * How many steps to enter\exit or inside your home? NONE * PCP DR. MEDINA * [facility] * Preadmission Environment Tool And Die Supervisor [employer] * Facility Name [facility] * ADLs Partial Dependent * Partial ADLs (Assistance needed) Bathing Medication Management * Equipment CPAP Nebulizer Oxygen Wheelchair * Other Equipment HOME AND PORTABLE OXYGEN CPAP - PT NOT USING DUE TO IT BEING DIRTY ALL EQUIPMENT PROVIDED BY MEDICAL FACILITY * List name and contact numbers for known caregivers / representatives who currently or will assist patient after discharge: TOSHA WHITT, SPOUSE, * Verbal permission to speak to the caregivers and representatives has been obtained from the patient. N/A * Community resources currently utilized None * Please name any agencies selected above. NONE * Additional services required to return to the preadmission environment? No * Can the patient safely return to the preadmission environment? Yes * Has this patient been hospitalized within the prior 30 days at any hospital? No Coverage Notice Reviewer: [id number] Shaye Lopez Notice Issued Date-Time: 11/27/2018 14:45 Notice Type: Patient Choice Letter Notice Delivered To: Patient Relationship to Patient: Business Banking Officer Name: Delivery Method: HAND - Hand Delivered Ct Days: Prior Verbal Notification: Recipient Understood Notice: Yes Recipient Signature: Yes Med Rec Note Co-signed by Attending: Coverage Notice Comment: [facility] Reviewer: [id number] Shaye Lopez Notice Issued Date-Time: 12/01/2018 13:45 Notice Type: IM Discharge Notice Notice Delivered To: Patient Relationship to Patient: Business Banking Officer Name: Delivery Method: HAND - Hand Delivered Ct Days: Prior Verbal Notification: Recipient Understood Notice: Yes Recipient Signature: Yes Med Rec Note Co-signed by Attending: Coverage Notice Comment: Last DP export: 12/01/18 3:48 pm Patient Name: TACHO WHITT Page [id number] at 1722 All edits/amendments must be made on the electronic document DICTATION DATE: 12/01/181720 FUNERAL ARRANGER: LAURA 12/01/181720 RPT#: [id number] DC DATE: STATUS: ADM IN [facility] [address] [place] [address] END OF REPORT
--- NOTE | 2018-12-01 18:13 | NUR ---
PT CURRENTLY LYING ON RIGHT SIDE. CALL LIGHT W/I REACH. PT IS AAO AND DENIES ANY NEEDS AT THIS TIME. NO S/S OF DISTRESS NOTED. PIV IS SALINE LOCKED. RR EVEN AND UNLABORED ON 3L 02. WILL PASS REPORT AND CONTINUE WITH POC.
--- NOTE | 2018-12-01 21:55 | NUR ---
INITIAL ROUNDS COMPLETED AT 1909 HRS. PT DENIED ANY DISCOMFORT BUT HAD C/O MILD SOB. ASSESSMENT COMPLETED AT 1954 HRS. VSS. O2 SAT 99% ON 3LNC. SR PER CM HR 81. IV TO LFA SL. LUNGS DIMINISHED IN BASES BILAT. MATOS. PALPABLE PERIPHERAL PULSES. PM MEDS GIVEN. PT CURRENTLY RESTING WITH EYES CLOSED. RESP EVEN AND REGULAR. SR UP X2, CALL LIGHT WITHIN REACH.
--- NOTE | 2018-12-01 23:31 | NUR ---
PT RESTING WITH EYES CLOSED. RESP EVEN AND REGULAR. SR UP X2, CALL LIGHT WITHIN REACH.
[2018-12-02] VITALS (7 sets, daily range): BP systolic 80–130; BP diastolic 42–66
--- NOTE | 2018-12-02 01:53 | NUR ---
PT SITTING ON SIDE OF BED EATING PUDDING. NO DISTRESS NOTED. CALL LIGHT WITHIN REACH.
--- NOTE | 2018-12-02 04:16 | NUR ---
BIPAP ON. PT RESTING WITH EYES CLOSED. RESP EVEN AND REGULAR. SR UP X2, CALL LIGHT WITHIN REACH.
[2018-12-02 05:44] LABS: ANION GAP 12.4 mmol/L (8-16); CALCIUM 8.3 mg/dL (8.5-10.1); CREATININE - SERUM 1.1 mg/dL (0.6-1.3); POTASSIUM - SERUM 3.4 mmol/L (3.5-5.1)
[2018-12-02 05:50] LABS: BASOPHILS 0.1 % (0-2); EOSINOPHILS 0 % (0-7); HEMATOCRIT 35.5 % (42.0-54.0); HEMOGLOBIN 11.8 g/dL (13.5-17.5); LYMPHOCYTES 3.3 % (15-50); MCH 29.6 pg (26.0-34.0); MCHC 33.2 g/dL (31.0-37.0); MCV 89.2 fL (80.0-100.0); MEAN PLATELET VOLUME 9.9 fL (7.4-10.4); NEUTROPHILS 92.6 % (40-80); PLATELET COUNT 265 10x3/uL (130-400); RBC 3.98 10x6/uL (4.20-6.10); RDW 12.6 % (11.5-14.5); WBC 18.2 10x3/uL (4.8-10.8)
--- NOTE | 2018-12-02 05:52 | NUR ---
PT OFF BIPAPPER REQUEST. O2 2LNC. VSS THROUGHOUT NIGHT. SR PER CM. PT DENIED ANY DISCOMFORT. NEEDS MET; WILL CONTINUE TO MONITOR.
--- NOTE | 2018-12-02 07:15 | NUR ---
ALERT AND ORIENTED. TELEMERTY SHOWS SR. 02 AT 3 L/M PER NC. LEFT FA WITH SL. LUNGS DIMISHED.UP WITH HELP. BRUSIS TO ARMS AND ABD.USES BI PAP AT NIGHT AND PRN. SR UP WITH CALL LIGHT IN REACH
--- NOTE | 2018-12-02 13:55 | NUR ---
LYING QUIETLY. DENIES ANY NEEDS. RESP REG AND NO LABORED. 02 AT 3 L/M PER NC. WILL MONITOR
--- NOTE | 2018-12-02 16:13 | NUR ---
AGREE WITH HOUSE SUPERINTENDENT ASSESSMENT
--- NOTE | 2018-12-02 18:02 | NUR ---
C/O SHORTNEDD OF BREATH. RESPITORY FOR BREATHING TREATMENT
--- NOTE | 2018-12-02 22:31 | NUR ---
INITIAL ROUNDS COMPLETED AT 1910 HRS. PT SITTING AT SIDE OF BED WITH RT TX IN PROGRESS. ASSESSMENT COMPLETED AT 1944 HRS. VSS. O2 3LNC. LUNGS TIGHT TO UPPER LOBES, DIMINISHED IN BASES BILAT. MATOS. BRUISES NOTED TO BILAT ARMS AND UNDER UMBILICUS. IV TO LFA SL. SR PER CM HR 85. PM MEDS GIVEN PER ORDERS. PT CURRENTLY RESTING WITH EYES CLOSED. RESP EVEN AND REGULAR. SR UP X2, CALL LIGHT WITHIN REACH.
--- NOTE | 2018-12-03 00:29 | NUR ---
ICE CREAM AND PUDDING GIVEN PER REQUEST. NO DISTRESS NOTED. CALL LIGHT WITHIN REACH.
--- NOTE | 2018-12-03 03:09 | NUR ---
PT RESTING WITH EYES CLOSED. RESP EVEN AND REGULAR. SR UP X2, CALL LIGHT WITHIN REACH.
[2018-12-03 03:55] VITALS: BP 114/62
--- NOTE | 2018-12-03 04:31 | NUR ---
PT AWAKE; HAS C/O SOB. RT CALLED FOR PRN BREATHING TX.
--- NOTE | 2018-12-03 05:00 | NUR ---
PT CONTINUES TO HAVE C/O SOB. REFUSES BIPAP. RT TX COMPLETED. O2 SAT 82% ON 3LNC. PT REFUSED TO BE PULLED UP IN BED BUT AGREED TO SIT ON SIDE OF BED. ENCOURAGED PT TO TAKE DEEP BREATHES AND O2 SAT TO 90%. ATIVAN 1MG PO GIVEN FOR C/O ANXIETY. WILL RECHECK O2 SAT IN 30 MINUTES. LIZZ RT GIVEN UPDATE OF PT'S CONDITION.
--- NOTE | 2018-12-03 05:28 | NUR ---
O2 SAT NOW TO 97% ON 3LNC. ORANGE JUICE GIVEN PER REQUEST.
--- NOTE | 2018-12-03 06:29 | NUR ---
VSS . SR PER CM. PT STATES SOB NOT SEVERE. REFUSES BIPAP. CALL LIGHT WITHIN REACH.
[2018-12-03 06:38] LABS: CALC OSMOLALITY 285 mosm/kg (275-300); CALCIUM 8.4 mg/dL (8.5-10.1); CARBON DIOXIDE 30.2 mmol/L (21.0-32.0); CHLORIDE - SERUM 100 mmol/L (98-107); CREATININE - SERUM 0.9 mg/dL (0.6-1.3); GLUCOSE 211 mg/dL (74-106); POTASSIUM - SERUM 3.7 mmol/L (3.5-5.1); SODIUM 138 mmol/L (136-145); UREA NITROGEN 23 mg/dL (7-18); eGFR NON AFRICAN AMERICAN > 90 mL/min (90-120)
--- NOTE | 2018-12-03 07:15 | NUR ---
SITTING UP ON SIDE OF BED, 02 PRESENT AT 3L VIA NC, DYSPNEA WITH EXERTION, ON TELEMETRY, LEFT FOREARM IV PATENT SALINE LOCKED,UP AD JANE DENIES ANY NEEDS BED LOWERED AND LOCKED, CALL LIGHT WITHIN REACH. CPOC
[2018-12-03 08:51] VITALS: BP 124/74
[2018-12-03] MEDS ORDERED: BROVANA15 MCG/2 M INH (10:43)
[2018-12-03] MEDS ORDERED: IPRAT-ALBUT 0.5-3 ML INH (10:44)
[2018-12-03] MEDS ORDERED: PREDNISONE10 MG PO (10:47)
--- NOTE | 2018-12-03 11:44 | NUR ---
IV INFILTRATED TO LEFT FOREARM. REMOVED CATHETER, TIP INTACT, GAUZE AND BANDAGE APPLIED, DENIES ANY NEEDS OR DISCOMFORTS, BED LOWERED AND LOCKED CALL LIGHT WITHIN REACH. CPOC
--- NOTE | 2018-12-03 13:27 | NUR ---
REPORT GIVEN TO EVE FROM [facility] [employer]. THEY ARE SENDING TRANSPORTATION.
--- NOTE | 2018-12-03 13:46 | NUR ---
DISCHARGE INSTRUCTIONS GIVEN, VERBALIZED UNDERSTANDING, APREHNSIVE ABOUT GOING BACK TO [facility]. EDUCATED HIM ON THE IMPORTANCE OF USING HIS BIPAP AND HOW IT WORKS. DENIES ANY QUESTIONS OR CONCERNS.
--- NOTE | 2018-12-04 17:04 | MORECARE ---
CASE MANAGEMENT DISCHARGE SUMMARY PATIENT: TACHO WHITT UNIT: [id number] ADM DATE: 11/26/18 AGE: 63 : 57 SEX: M ROOM/BED: D.4684 AUTHOR: ANNELIESE,DOC PHYSICIAN: REFERRING PHYSICIAN: JOSE CARLOS SAM MD DATE OF SERVICE: 12/04/18 Discharge Plan Patient Name: TACHO WHITT Facility: [facility]:[place] : 1955 Planned Disposition: Nursing Facility [facility] Cert Anticipated Discharge Date: 12/03/18 Discharge Date: 12/03/2018 Expected LOS: 7 Initial Reviewer: [id number] Initial Review Date: 11/27/2018 Generated: 12/04/18 6:04 pm Comments DCP- Discharge Planning Updated by [id number]: Rufino Lopez on 12/01/18 3:[address] Patient Name: TACHO WHITT Encounter No: [id number] : 1955 Primary Insurance[place] [facility] [place] or [place]PO Anticipated DC Date: Planned Disposition: Nursing Facility [facility] Cert External Planned Provider:[facility], MEDICARE SKILLED BED DISCHARGE PLANNING NOTE: CM SPOKE TO [facility], , WHO ADVISED THAT THEY PLAN FOR PT TO RETURN TO SKILLED BED. PT IS CURRENTLY IN CORRECTION CARE BED. CM FAXED UPDATE TO [facility] AT [phone]. FOR DISCHARGE, FAX DISCHARGE INFORMATION TO [facility] AT [phone]. NURSE REPORT TO BE CALLED TO [facility] AT [phone]. [facility] TO ARRANGE VAN TRANSPORT. Rufino Lopez CASE MANAGEMENT Appended by Rufino Lopez on 12/01/2018 17:16 LICENSED EMBALMER: CM SPOKE TO [facility], PT HAS BRAND NEW BIPAP AVAILABLE WITH NEW TUBING AND MASK AT FACILITY. PT HAS REFUSED TO WEAR IT IN THE FACILITY, BUT IT IS THERE AND AVAILABLE FOR PT'S USE. FOR DISCHARGE, FAX DISCHARGE INFORMATION TO [facility] AT [phone]. NURSE REPORT TO BE CALLED TO [facility] AT [phone]. [facility] TO ARRANGE VAN TRANSPORT. FROY Hill DCP- Discharge Planning Updated by [id number]: Rufino Lopez on 11/27/18 2:[address] Patient Name: TACHO WHITT Encounter No: [id number] : 1955 Primary Insurance: [facility] [place] or PPO Anticipated DC Date: Planned Disposition: Nursing Facility [facility] External Planned Provider: [facility], LONG TERM CARE MEDICAID BED DISCHARGE PLANNING NOTE: CM MET WITH PT IN ROOM TO DISCUSS DISCHARGE PLANNING AND NEEDS. PT REPORTS LIVING AT [facility] FOR THE LAST TWO YEARS. PT REPORTS FEELING SAFE AND WILL BE RETURNING THERE AT DISCHARGE. CHOICE LISTING PROVIDED, PT SIGNED CONSENT FOR [facility]. PT REPORTS BEING OUT OF BE AND IN WHEELCHAIR AT THE CORRECTION. PT REPORTS HAVING OXYGEN, NEBULIZER, WHEELCHAIR AND CPAP AT THE FACILITY. PT HAS NOT BEEN USING HIS CPAP DUE TO IT BEING DIRTY. CM SPOKE TO [facility], , WHO ADVISED THAT THEY MAY RETURN PT TO SKILLED BED DEPENDING ON IF HE HAS THREE MIDNIGHTS IN INPATIENT BED AND IF HE HAS REMAINING SKILLED DAYS REMAINING. PT IS CURRENTLY IN CORRECTION CARE BED. CM FAXED UPDATE TO [facility] AT [phone]. FOR DISCHARGE, FAX DISCHARGE INFORMATION TO [facility] AT [phone]. NURSE REPORT TO BE CALLED TO [facility] AT [phone]. [facility] TO ARRANGE VAN TRANSPORT. FROY Hill DCPIA - Discharge Planning Initial Assessment Updated by [id number]: Rufino Lopez on 11/27/18 4:10 pm * Is the patient Alert and Oriented? Yes * How many steps to enter\exit or inside your home? NONE * PCP DR. MEDINA * Pharm[facility] * Preadmission Environment Restaurant Mgr Residential * Facility Name [facility] * ADLs Partial Dependent * Partial ADLs (Assistance needed) Bathing Medication Management * Equipment CPAP Nebulizer Oxygen Wheelchair * Other Equipment HOME AND PORTABLE OXYGEN CPAP - PT NOT USING DUE TO IT BEING DIRTY ALL EQUIPMENT PROVIDED BY MEDICAL FACILITY * List name and contact numbers for known caregivers / representatives who currently or will assist patient after discharge: TOSHA WHITT, SPOUSE, * Verbal permission to speak to the caregivers and representatives has been obtained from the patient. N/A * Community resources currently utilized None * Please name any agencies selected above. NONE * Additional services required to return to the preadmission environment? No * Can the patient safely return to the preadmission environment? Yes * Has this patient been hospitalized within the prior 30 days at any hospital? No Coverage Notice Reviewer: [id number] Shaye Lopez Notice Issued Date-Time: 11/27/2018 14:45 Notice Type: Patient Choice Letter Notice Delivered To: Patient Relationship to Patient: Clinical Account Executive Name: Delivery Method: HAND - Hand Delivered Ct Days: Prior Verbal Notification: Recipient Understood Notice: Yes Recipient Signature: Yes Med Rec Note Co-signed by Attending: Coverage Notice Comment: [facility] Reviewer: [id number] Shaye Lopez Notice Issued Date-Time: 12/01/2018 13:45 Notice Type: IM Discharge Notice Notice Delivered To: Patient Relationship to Patient: Clinical Account Executive Name: Delivery Method: HAND - Hand Delivered Ct Days: Prior Verbal Notification: Recipient Understood Notice: Yes Recipient Signature: Yes Med Rec Note Co-signed by Attending: Coverage Notice Comment: Last DP export: 12/01/18 3:21 pm Patient Name: TACHO WHITT Page 92017 at 1704 All edits/amendments must be made on the electronic document DICTATION DATE: 12/04/181702 HEALTH NURSE: LAURA 12/04/181702 RPT#: [id number] DC DATE:12/03/18 STATUS: DIS IN [facility] [address] [place] [address] END OF REPORT
== END 2018-12-03 14:23 | DRG 189 ==
LOC: D.ER 15:34 → D.M2 20:45
PROVIDERS: Family Medicine; ADMIT Internal Medicine Nephrology; ATTEND Internal Medicine Nephrology
DX: J96.22 Acute and chronic respiratory failure with hypercapnia (principal); E43 Unspecified severe protein-calorie malnutrition; J44.1 Chronic obstructive pulmonary disease with (acute) exacerbation; E87.2 Acidosis; J44.0 Chronic obstructive pulmonary disease with (acute) lower respiratory infection; J96.21 Acute and chronic respiratory failure with hypoxia; I10 Essential (primary) hypertension; Z68.22 Body mass index [BMI] 22.0-22.9, adult; E87.5 Hyperkalemia; K27.9 Peptic ulcer, site unspecified, unspecified as acute or chronic, without hemorrhage or perforation; E78.5 Hyperlipidemia, unspecified; J20.9 Acute bronchitis, unspecified; F17.200 Nicotine dependence, unspecified, uncomplicated; E87.6 Hypokalemia